=== PATIENT | male | born 1950 | race Caucasian/White ===

== ENCOUNTER → 2021-05-16 | Outpatient (CLI) | payer MEDICARE ==
[~2021-05-16] MED LIST: AMBIEN 5 MG TABL5 M1 PO; APAP500 PO; ASPIRIN325 PO; COLACE100 MG PO; HYDROCODONE-AP1 EAC6 PO; LEVAQUIN 750 M750 MG PO; LEXAPRO 10 MG T10 M1 PO; LISINOPRIL10 MG PO; OXYCODONE HCL 55 MG PO; PREDNISONE50 MG PO; TRAZODONE HCL50 MG PO; VALERIAN450 MG PO; VENTOLIN HFA 1818 GM INH; XARELTO10 MG PO
--- NOTE | 2021-05-25 22:32 | PF ---
[facility] [address] [place] [address] PULMONARY FUNCTION REPORT Name: REJI GRAVES Room: [facility]#: [id number] Admission: 05/16/21 Attend Phys: Victorino Roberts MD Discharge: Date of : 50 Report #: [id number] THIS REPORT FOR: cc: Victorino Roberts MD, Bruce D. MD Pervez, Adeel MD ~ DATE OF STUDY: 05/16/2021 PULMONARY FUNCTION TEST The FEV1/FVC ratio is normal at 70%. The FVC is normal at 95%. The FEV1 is normal at 87%. The FEF 25-75 was decreased to 57%. The total lung capacity is normal at 88%. The residual volume is decreased to 70%. The DLCO as adjusted for hemoglobin is 93%. The patient's FEV1 is noted to be 3.22 liters. This does not increase after the administration of a bronchodilator. The flow volume loop is concave upwards. IMPRESSION: 1. Minimal obstruction without evidence of reversibility. 2. Essentially normal lung volumes with the exception of residual volume mildly decreased to 70%. This is likely a normal variant; however, a mild restriction can also lead to this picture. Clinical correlation is advised. 3. The DLCO as adjusted for hemoglobin is normal. <ELECTRONICALLY SIGNED> By: Tavares Tatum MD 05/25/21 2232 [id number] yao Galo
== END ==
LOC: M.PUL 09:30
PROVIDERS: ATTEND Family Medicine
DX: R94.2 Abnormal results of pulmonary function studies (principal); J20.9 Acute bronchitis, unspecified

== ENCOUNTER → 2021-05-29 | Outpatient (CLI) | payer MEDICARE ==
--- NOTE | 2021-05-29 13:28 | 2DMMODE ---
[address] [address] 2 D/M-MODE ECHOCARDIOGRAM Name: REJI GRAVES Room: [facility]#: [id number] Admission: 05/29/21 Attend Phys: Jose Yanez, Discharge: Date of : 50 Date of Service: 05/29/21 1327 Report #: [id number] THIS REPORT FOR: cc: Victorino Roberts MD, Bruce D. MD Holkins, John M. MD [facility] ~ APPROVED REPORT Study performed: 05/29/2021 07:52:32 EXAM: Comprehensive 2D, Doppler, and color-flow Echocardiogram Patient Location: Out-Patient BSA: 2.20 HR: 68 bpm Other Information Study Quality: Good Indications Murmur 2D Dimensions IVSd: 10.53 (7-11mm) LVOT Diam: 20.46 (18-24mm) LVDd: 49.83 mm PWd: 9.64 (7-11mm) Ascending Ao: 28.19 (22-36mm) LVDs: 28.99 (25-40mm) Aortic Root: 29.25 mm Volumes Left Atrial Volume (Systole) LA ESV Index: 13.90 mL/m2 Aortic Valve AoV Peak Rui.: 2.55 m/s AO Peak Gr.: 26.04 mmHg LVOT Max P.53 mmHg AO Mean Gr.: 14.99 mmHg LVOT Mean P.12 mmHg LVOT Max V: 1.06 m/s AO V2 VTI: 58.46 cm LVOT Mean V: 0.67 m/s MARCELL (VTI): 1.31 cm2 LVOT V1 VTI: 23.24 cm AI [place]: 1.80 m/s2 AI PHT: 544.16 [place] [address] 2 D/M-MODE ECHOCARDIOGRAM Name: REJI GRAVES Room: [facility]#: [id number] Admission: 05/29/21 Attend Phys: Jose Yanez, Discharge: Date of : 50 Date of Service: 05/29/21 1327 Report #: [id number] Mitral Valve E/A Ratio: 0.98 MV Decel. Time: 252.78 ms MV E Max Rui.: 0.78 m/s MV PHT: 73.31 ms MVA (PHT): 3.00 cm2 TDI E/Lateral E': 6.50 E/Medial E': 9.75 Medial E' Rui.: 0.08 m/s Lateral E' Rui.: 0.12 m/s Pulmonary Valve PV Peak Rui.: 1.12 m/s PV Peak Gr.: 4.98 mmHg Tricuspid Valve RAP Estimate: 5.00 mmHg TR Peak Gr.: 26.86 mmHg RVSP: 31.86 mmHg PA Pressure: 31.86 mmHg Left Ventricle The left ventricle is normal size. There is normal LV segmental wall motion. There is normal left ventricular wall thickness. Left ventricular systolic function is normal. The left ventricular ejection fraction is within the normal range. LVEF is 55-60%. Grade I - abnormal relaxation pattern. Right Ventricle The right ventricle is normal size. The right ventricular systolic function is normal. Atria The left atrium size is normal. The right atrium size is normal. Aortic Valve Moderate aortic valve sclerosis. Mild aortic regurgitation. Mild aortic stenosis. Mitral Valve The mitral valve is normal in structure. Trace to mild mitral regurgitation. No evidence of mitral valve stenosis. Tricuspid Valve The tricuspid valve is normal in structure. Mild tricus[place] [address] 2 D/M-MODE ECHOCARDIOGRAM Name: REJI GRAVES Room: [facility]#: [id number] Admission: 05/29/21 Attend Phys: Jose Yanez, Discharge: Date of : 50 Date of Service: 05/29/21 1327 Report #: [id number] Pulmonic Valve The pulmonary valve is normal in structure. There is no pulmonic valvular regurgitation. Great Vessels The aortic root is normal in size. IVC is normal in size and collapses >50% with inspiration. Pericardium There is no pericardial effusion. <Conclusion> The left ventricle is normal size. There is normal left ventricular wall thickness. Left ventricular systolic function is normal. The left ventricular ejection fraction is within the normal range. LVEF is 55-60%. Grade I - abnormal relaxation pattern. The right ventricle is normal size. The left atrium size is normal. Moderate aortic valve sclerosis. Mild aortic regurgitation. Mild aortic stenosis. The mitral valve is normal in structure. Trace to mild mitral regurgitation. The tricuspid valve is normal in structure. Mild tricuspid regurgitation. IVC is normal in size and collapses >50% with inspiration. There is no pericardial effusion. There is normal LV segmental wall motion. <ELECTRONICALLY SIGNED> By: Charli Regan MD, FACC 05/29/211326 26 26 Charli Regan MD, FACC /INF
== END ==
LOC: M.CRD 07:56
PROVIDERS: ATTEND Internal Medicine Cardiovascular Disease
DX: I08.3 Combined rheumatic disorders of mitral, aortic and tricuspid valves (principal); R01.1 Cardiac murmur, unspecified

== ENCOUNTER → 2021-06-09 | Outpatient (CLI) | payer MEDICARE ==
--- NOTE | 2021-06-09 12:22 | CARDNUC ---
[place] [address] CARDIAC NUCLEAR IMAGING REPORT Name: REJI GRAVES Room: [facility]#: [id number] Admission: 06/09/21 Attend Phys: Jose Yanez, Discharge: Date of : 50 Date of Service: 06/09/21 1222 Report #: [id number] THIS REPORT FOR: cc: Victorino Roberts MD, Bruce D. MD Park, Jin S. MD ~ APPROVED REPORT Imaging Protocol: Rest Tc-99m/Stress Tc-99m 1 day Study performed: 06/09/2021 09:19:39 Indication: Chest pain, Dyspnea Stress Tech: jose juan martinez NM Tech:MARK LinnTCB Ht: 5 ft 10 in Wt: 226 lbs BSA: 2.20 m2 HR: 71 bpm BP: 154/74 mmHg BMI: 32.42 Medical History Medical History: CAD non obstructive, HTN, Hyperlipidemia Medications: atorvastatin, lisinopril, telmisartan Allergies: conttrast dye Cardiac Risk Factors: Age, FHX of CAD, HTN, Hyperlipidemia, Past Smoker Exercise History: Indeterminate Resting Data Rest SPECT myocardial perfusion imaging was performed in supine position 30 minutes following the intravenous injection of 9.4 mCi of Tc-99m Sestamibi. Time of rest injection: 819 Date: 06/09/2021 The images were gated to evaluate regional wall motion and calculate left ventricular ejection fraction. Administration Route: IV Administration Site: Right AC Pharmacologic Stress Pharmacologic stress test was performed by injecting Regadenoson 0.4 mg IV push over 10-15 seconds immediately followed by the intravenous injection of 33.8 mCi of Tc-99m Sestamibi. Time of stress injection: 929 Date: 06/09/2021 Administration Route: [place] [address] CARDIAC NUCLEAR IMAGING REPORT Name: REJI GRAVES Room: [facility]#: [id number] Admission: 06/09/21 Attend Phys: Jose Yanez, Discharge: Date of : 50 Date of Service: 06/09/21 1222 Report #: [id number] Administration Site: Right AC Gated Stress SPECT was performed 40 minutes after stress injection. The images were gated to evaluate regional wall motion and calculate left ventricular ejection fraction. Prone imaging was performed. Stress Test Details Stress Test: Pharmacologic stress testing performed using 0.4 mg of regadenoson per 5 mL given IV over 10 seconds. Reason for pharmacologic stress test: av stenosis. HR Max Heart Rate (APMHR): 150 bpm Resting HR: 71 bpm Target HR (85% APMHR): 127 bpm Max HR Achieved: 97 bpm % of APMHR: 64 Recovery HR: 90 bpm BP Resting BP: 154/74 mmHg Max BP: 132/53 mmHg Recovery BP: 152/71 mmHg ECG Resting ECG: Sinus Rhythm Stress ECG: Sinus Rhythm ST Change: Non-ischemic Clinical Reason for Termination: Completed protocol Nurse Comments pt became diaazy and lightheaded after injection of desmond. Was placed in recumbenet position. Recover fully after drinking caffeine Study Quality Study: Good Study Data Post stress, the left ventricular ejection was 65%.. SSS: 6 SRS: 0 SDS: 6 TID = 0.87. Perfusion There is a medium area of moderately reduced uptake [place] [address] CARDIAC NUCLEAR IMAGING REPORT Name: REJI GRAVES Room: [facility]#: [id number] Admission: 06/09/21 Attend Phys: Jose Yanez, Discharge: Date of : 50 Date of Service: 06/09/21 1222 Report #: [id number] apical segment of the inferior wall which is seen on the stress images and improves on the resting images. This area thickens and moves normally and is most consistent with ischemia. Wall Motion Normal left ventricular wall motion. Nuclear Conclusion ECG Findings: negative for ischemia Clinical Findings: non-diagnostic Nuclear Findings: positive for ischemia Exercise Capacity: not assessed Left Ventricular Function: normal This study reveals a reversible inferior wall defect, consistent with ischemia. There is normal global and segmental LV systolic function. <ELECTRONICALLY SIGNED> By: Saul Merino MD 06/09/21 122 21 21 Saul Merino MD /INF
== END ==
LOC: M.NUC 05-30 14:57 → M.LAB 07:24 → M.NUC 08:00
PROVIDERS: ATTEND Internal Medicine Cardiovascular Disease
DX: M48.07 Spinal stenosis, lumbosacral region (principal); M47.812 Spondylosis without myelopathy or radiculopathy, cervical region; K76.0 Fatty (change of) liver, not elsewhere classified; J98.4 Other disorders of lung; I65.23 Occlusion and stenosis of bilateral carotid arteries; M25.78 Osteophyte, vertebrae; I25.9 Chronic ischemic heart disease, unspecified; R91.8 Other nonspecific abnormal finding of lung field; I10 Essential (primary) hypertension; I35.0 Nonrheumatic aortic (valve) stenosis; I25.10 Atherosclerotic heart disease of native coronary artery without angina pectoris